=== PATIENT | male | born 1930 | race Caucasian/White ===

== ENCOUNTER 2018-09-05 11:51 | Observation (INO) | payer MEDICARE, OTHER ==
[2018-09-05 13:15] LABS: ADD MAN DIFF? NO
[2018-09-05 13:20] LABS: BASOPHILS % 0.2 % (0.0-2.0); EOSINOPHILS # 0.3 10^3/ul (0.0-0.5); EOSINOPHILS % 3.3 % (0.0-7.0); HEMATOCRIT 41.4 % (42.0-52.0); HEMOGLOBIN 14.1 g/dl (14.0-18.0); LYMPHOCYTES # 2.4 10^3/ul (0.8-2.9); LYMPHOCYTES % 26.7 % (15.0-51.0); MEAN CORPUSCULAR HEMOGLOBIN 30.8 pg (29.0-33.0); MEAN CORPUSCULAR HGB CONC 34.1 g/dl (32.0-37.0); MEAN CORPUSCULAR VOLUME 90.4 fl (82.0-101.0); MEAN PLATELET VOLUME 9.7 fl (7.4-10.4); MONOCYTES % 11.1 % (0.0-11.0); NEUTROPHIL # 5.1 10^3/ul (1.6-7.5); NEUTROPHILS % 58.2 % (39.0-77.0); PLATELET COUNT 198 10^3/UL (140-415); RED BLOOD COUNT 4.58 10^6/ul (4.70-6.10); RED CELL DISTRIBUTION WIDTH 13.1 % (11.5-14.5)
[2018-09-05 13:20] LABS: WHITE BLOOD COUNT 8.8 10^3/ul (4.8-10.8)
[2018-09-05 13:35] LABS: INR 2.42; PROTIME 26.4 Sec (11.9-14.9); PT RATIO 2.1
[2018-09-05 13:36] LABS: ANION GAP 9 (5-13); BLOOD UREA NITROGEN 19 mg/dl (7-20); CALCIUM 9.5 mg/dl (8.4-10.2); CARBON DIOXIDE 32 mmol/L (21-31); CHLORIDE 92 mmol/L (97-110); CREATININE 0.88 mg/dl (0.61-1.24); GLUCOSE 93 mg/dl (70-220); MAGNESIUM 1.8 mg/dl (1.7-2.5); SODIUM 133 mmol/L (135-144)
[2018-09-05 13:48] LABS: TROPONIN-I 0.025 ng/ml (0.000-0.120)
[2018-09-05] MEDS: HYDROCODONE/APAP (5/325) TAB PO (14:58)
[2018-09-05] MEDS: ONDANSETRON (ODT) 4 MG TAB ODT (14:58)
[2018-09-05] MEDS ORDERED: NACL 0.9% 3 ML SYG IV (18:30)
[2018-09-05] MEDS ORDERED: ONDANSETRON 4 MG INJ IV (18:30)
[2018-09-05] MEDS ORDERED: DOCUSATE SODIUM 100 MG CAP PO (18:30)
[2018-09-05] MEDS: MIRTAZAPINE 15 MG TAB PO (20:15)
[2018-09-05] MEDS: ACETAMINOPHEN 325 MG TAB PO (22:29)
[2018-09-06] MEDS: PANTOPRAZOLE (EC) 40 MG TAB PO (05:04)
[2018-09-06 07:29] LABS: ADD MAN DIFF? NO
[2018-09-06 07:34] LABS: WHITE BLOOD COUNT 8.8 10^3/ul (4.8-10.8)
[2018-09-06 07:34] LABS: BASOPHILS % 0.3 % (0.0-2.0); EOSINOPHILS # 0.3 10^3/ul (0.0-0.5); EOSINOPHILS % 3.4 % (0.0-7.0); HEMATOCRIT 40.6 % (42.0-52.0); HEMOGLOBIN 13.8 g/dl (14.0-18.0); LYMPHOCYTES % 34.5 % (15.0-51.0); MEAN CORPUSCULAR HEMOGLOBIN 30.7 pg (29.0-33.0); MEAN CORPUSCULAR VOLUME 90.4 fl (82.0-101.0); MONOCYTE # 0.9 10^3/ul (0.3-0.9); NEUTROPHIL # 4.5 10^3/ul (1.6-7.5); NEUTROPHILS % 51.5 % (39.0-77.0); PLATELET COUNT 193 10^3/UL (140-415); RED BLOOD COUNT 4.49 10^6/ul (4.70-6.10)
[2018-09-06 07:52] LABS: HEMOGLOBIN A1C 5.6 % (0-5.9)
[2018-09-06 08:05] LABS: ALANINE AMINOTRANSFERASE 17 IU/L (13-69); ALBUMIN 3.8 g/dl (3.3-4.9); ALBUMIN/GLOBULIN RATIO 1.52; ALKALINE PHOSPHATASE 45 IU/L (42-121); ANION GAP 7 (5-13); ASPARTATE AMINO TRANSFERASE 19 IU/L (15-46); BILIRUBIN,INDIRECT 1.2 mg/dl (0-1.1); BILIRUBIN,TOTAL 1.2 mg/dl (0.2-1.3); BLOOD UREA NITROGEN 18 mg/dl (7-20); CALCIUM 9.2 mg/dl (8.4-10.2); CARBON DIOXIDE 33 mmol/L (21-31); CHLORIDE 93 mmol/L (97-110); CHOL/HDL RATIO 2.7 RATIO; CHOLESTEROL 139 mg/dl (100-200); CREATININE 0.87 mg/dl (0.61-1.24); GLUCOSE 85 mg/dl (70-220); HDL CHOLESTEROL 51 mg/dl (31-75); LDL CHOLESTEROL,CALCULATED 72 mg/dl; POTASSIUM 3.7 mmol/L (3.5-5.1); SODIUM 133 mmol/L (135-144); TOTAL PROTEIN 6.3 g/dl (6.1-8.1); TRIGLYCERIDES 78 mg/dl (0-149)
[2018-09-06 08:09] LABS: B-TYPE NATRIURETIC PEPTIDE 890 PG/ML (0-450)
[2018-09-06 08:12] LABS: TROPONIN-I 0.031 ng/ml (0.000-0.120)
[2018-09-06] MEDS: BETA CAROTENE/VIT C/E/MIN TAB PO (09:21)
[2018-09-06] MEDS: ASPIRIN (EC) 81 MG TAB PO (09:22)
[2018-09-06] MEDS: METOLAZONE 5 MG TAB PO (09:22)
[2018-09-06] MEDS: POTASSIUM CHLORIDE (SR) 20 MEQ TAB PO (09:22)
[2018-09-06] MEDS: BENAZEPRIL 10 MG TAB PO (09:22)
[2018-09-06] MEDS: ASCORBIC ACID 500 MG TAB PO (09:22)
[2018-09-06] MEDS: FINASTERIDE 5 MG TAB PO (09:22)
[2018-09-06] MEDS: MULTIVITAMINS THERAPEUTIC TAB PO (09:22)
[2018-09-06] MEDS: FUROSEMIDE 40 MG TAB PO (09:23)
[2018-09-06] MEDS ORDERED: WARFARIN 2.5 MG TAB PO (17:00)
== END 2018-09-06 17:00 ==
LOC: E/R 11:51 → TEL 14:32
DX: M25.512 Pain in left shoulder (principal); I49.9 Cardiac arrhythmia, unspecified; N40.0 Benign prostatic hyperplasia without lower urinary tract symptoms; I50.9 Heart failure, unspecified; I48.91 Unspecified atrial fibrillation; I71.4 Abdominal aortic aneurysm, without rupture; Z79.01 Long term (current) use of anticoagulants; Z79.82 Long term (current) use of aspirin; Z95.0 Presence of cardiac pacemaker; Z95.1 Presence of aortocoronary bypass graft; F17.210 Nicotine dependence, cigarettes, uncomplicated; F01.50 Vascular dementia, unspecified severity, without behavioral disturbance, psychotic disturbance, mood disturbance, and anxiety; Z91.81 History of falling
CPT/HCPCS: 36415; 71045; 73030; 80048; 80053; 80061; 83036; 83735; 83880; 84443; 84484; 85025; 85610; 85730; 93005; 93306; 93880; 97162; 99285-25; G0378

== ENCOUNTER 2018-11-23 13:47 | Inpatient (IN) | payer MEDICARE, OTHER ==
[2018-11-23 14:19] LABS: ADD MAN DIFF? NO
[2018-11-23 14:40] LABS: BASOPHILS % 0.2 % (0.0-2.0); EOSINOPHILS # 0.1 10^3/ul (0.0-0.5); EOSINOPHILS % 0.9 % (0.0-7.0); HEMATOCRIT 39.7 % (42.0-52.0); HEMOGLOBIN 13.3 g/dl (14.0-18.0); LYMPHOCYTES # 2.7 10^3/ul (0.8-2.9); MEAN CORPUSCULAR HEMOGLOBIN 30.6 pg (29.0-33.0); MEAN CORPUSCULAR HGB CONC 33.5 g/dl (32.0-37.0); MEAN CORPUSCULAR VOLUME 91.3 fl (82.0-101.0); MEAN PLATELET VOLUME 9.6 fl (7.4-10.4); MONOCYTE # 1.2 10^3/ul (0.3-0.9); MONOCYTES % 12.3 % (0.0-11.0); NEUTROPHIL # 5.9 10^3/ul (1.6-7.5); NEUTROPHILS % 59.3 % (39.0-77.0); PLATELET COUNT 179 10^3/UL (140-415); RED BLOOD COUNT 4.35 10^6/ul (4.70-6.10); RED CELL DISTRIBUTION WIDTH 13.7 % (11.5-14.5)
[2018-11-23 14:44] LABS: INR 1.17; PT RATIO 1.2
[2018-11-23 14:45] LABS: PARTIAL THROMBOPLASTIN TIME 27.4 Sec (23.0-35.0)
[2018-11-23 14:46] LABS: ANION GAP 9 (5-13); BLOOD UREA NITROGEN 23 mg/dl (7-20); CALCIUM 9.2 mg/dl (8.4-10.2); CARBON DIOXIDE 31 mmol/L (21-31); CHLORIDE 93 mmol/L (97-110); CREATININE 0.89 mg/dl (0.61-1.24); GLUCOSE 99 mg/dl (70-220); POTASSIUM 3.9 mmol/L (3.5-5.1); SODIUM 133 mmol/L (135-144)
[2018-11-23] MEDS: CEFEPIME 1GM/50 ML (PMX) 50 ML IVPB (14:46)
[2018-11-23 14:58] LABS: TROPONIN-I 0.047 ng/ml (0.000-0.120)
[2018-11-23] MEDS ORDERED: ACETAMINOPHEN 325 MG TAB PO ×3 (15:00)
[2018-11-23] MEDS ORDERED: NACL 0.9% 3 ML SYG IV (15:00)
[2018-11-23] MEDS ORDERED: DOCUSATE SODIUM 100 MG CAP PO (15:00)
[2018-11-23] MEDS ORDERED: MAGNESIUM HYDROXIDE 30ML CUP PO (15:00)
[2018-11-23] MEDS ORDERED: ONDANSETRON 4 MG INJ IV ×2 (15:00)
[2018-11-23] MEDS ORDERED: morphine 2 MG INJ IV (15:00)
[2018-11-23] MEDS ORDERED: VANCOMYCIN IV PER PHARMACY XX (15:00)
[2018-11-23] MEDS: VANCOMYCIN 1 GM (PMX) 250 ML IVPB (15:46)
[2018-11-23] MEDS: FUROSEMIDE 40 MG INJ IV ×2 (15:47→20:32)
[2018-11-23] MEDS: METHYLPREDNISOLONE 40 MG INJ IV ×2 (15:47→20:32)
[2018-11-23] MEDS: ALBUTEROL/IPRATROPIUM (NEB) 3 ML AMP HHN ×2 (15:58→21:08)
[2018-11-23 16:15] LABS: B-TYPE NATRIURETIC PEPTIDE 1930 PG/ML (0-450)
[2018-11-23] MEDS: AZITHROMYCIN 500MG/NS (PMX) 250 ML IVPB (17:47)
[2018-11-23] MEDS: VANCOMYCIN 1 GM in 250 ML IVPB (20:31)
[2018-11-23] MEDS: GUAIFENESIN LA 600 MG TABSR PO (20:32)
[2018-11-23] MEDS: MIRTAZAPINE 15 MG TAB PO (20:32)
[2018-11-23] MEDS: HEPARIN 5,000 UNIT/1 ML VIAL SC (21:00)
[2018-11-23] MEDS: WARFARIN 3 MG TAB PO (21:35)
[2018-11-24] MEDS: GUAIFENESIN/DM 5ML CUP PO (00:56)
[2018-11-24] MEDS: CEFEPIME 1GM/50 ML (PMX) 50 ML IVPB ×3 (00:56→20:29)
[2018-11-24 05:21] LABS: ADD MAN DIFF? NO
[2018-11-24 05:27] LABS: BASOPHILS % 0.1 % (0.0-2.0); HEMATOCRIT 37.7 % (42.0-52.0); HEMOGLOBIN 13.1 g/dl (14.0-18.0); LYMPHOCYTES # 0.9 10^3/ul (0.8-2.9); LYMPHOCYTES % 12.4 % (15.0-51.0); MEAN CORPUSCULAR HGB CONC 34.7 g/dl (32.0-37.0); MEAN CORPUSCULAR VOLUME 89.1 fl (82.0-101.0); MEAN PLATELET VOLUME 9.8 fl (7.4-10.4); MONOCYTE # 0.2 10^3/ul (0.3-0.9); MONOCYTES % 2.7 % (0.0-11.0); NEUTROPHILS % 84.1 % (39.0-77.0); PLATELET COUNT 170 10^3/UL (140-415); RED BLOOD COUNT 4.23 10^6/ul (4.70-6.10); RED CELL DISTRIBUTION WIDTH 13.6 % (11.5-14.5)
[2018-11-24 05:27] LABS: WHITE BLOOD COUNT 7.1 10^3/ul (4.8-10.8)
[2018-11-24] MEDS: PANTOPRAZOLE (EC) 40 MG TAB PO (05:41)
[2018-11-24 05:49] LABS: INR 1.26; PROTIME 15.9 Sec (11.9-14.9); PT RATIO 1.2
[2018-11-24 06:03] LABS: ALANINE AMINOTRANSFERASE 33 IU/L (13-69); ALBUMIN 3.3 g/dl (3.3-4.9); ALBUMIN/GLOBULIN RATIO 1.26; ALKALINE PHOSPHATASE 45 IU/L (42-121); ANION GAP 9 (5-13); ASPARTATE AMINO TRANSFERASE 58 IU/L (15-46); BILIRUBIN,INDIRECT 1.1 mg/dl (0-1.1); BILIRUBIN,TOTAL 1.1 mg/dl (0.2-1.3); BLOOD UREA NITROGEN 22 mg/dl (7-20); CALCIUM 8.9 mg/dl (8.4-10.2); CARBON DIOXIDE 31 mmol/L (21-31); CHLORIDE 96 mmol/L (97-110); CHOL/HDL RATIO 2.8 RATIO; CHOLESTEROL 122 mg/dl (100-200); CREATININE 0.75 mg/dl (0.61-1.24); GLUCOSE 154 mg/dl (70-220); HDL CHOLESTEROL 43 mg/dl (31-75); LDL CHOLESTEROL,CALCULATED 70 mg/dl; POTASSIUM 3.4 mmol/L (3.5-5.1); SODIUM 136 mmol/L (135-144); TOTAL PROTEIN 5.9 g/dl (6.1-8.1); TRIGLYCERIDES 43 mg/dl (0-149)
[2018-11-24 06:25] LABS: THYROID STIMULATING HORMONE 0.798 MIU/L (0.465-4.680)
[2018-11-24 06:41] LABS: HEMOGLOBIN A1C 5.3 % (0-5.9)
[2018-11-24] MEDS: ASCORBIC ACID 500 MG TAB PO (08:16)
[2018-11-24] MEDS: MULTIVITAMINS THERAPEUTIC TAB PO (08:16)
[2018-11-24] MEDS: GUAIFENESIN LA 600 MG TABSR PO ×2 (08:16→20:28)
[2018-11-24] MEDS: POTASSIUM CHLORIDE (SR) 20 MEQ TAB PO (08:16)
[2018-11-24] MEDS: BETA CAROTENE/VIT C/E/MIN TAB PO (08:17)
[2018-11-24] MEDS: FINASTERIDE 5 MG TAB PO (08:17)
[2018-11-24] MEDS: FUROSEMIDE 40 MG INJ IV ×2 (08:19→20:39)
[2018-11-24] MEDS: BENAZEPRIL 10 MG TAB PO (08:19)
[2018-11-24] MEDS: METHYLPREDNISOLONE 40 MG INJ IV ×2 (08:19→20:28)
[2018-11-24] MEDS: HEPARIN 5,000 UNIT/1 ML VIAL SC ×2 (08:37→20:29)
[2018-11-24] MEDS: ALBUTEROL/IPRATROPIUM (NEB) 3 ML AMP HHN ×3 (08:40→20:00)
[2018-11-24 11:19] LABS: PROCALCITONIN 0.08 ng/mL (0.00-0.10)
[2018-11-24] MEDS: WARFARIN 5 MG TAB PO (17:35)
[2018-11-24] MEDS: MIRTAZAPINE 15 MG TAB PO (20:28)
[2018-11-24] MEDS: VANCOMYCIN HCL 1.5 GM in SOD CHLORIDE 0.9% 250 ML IVPB (21:10)
[2018-11-25 06:15] LABS: ADD MAN DIFF? NO
[2018-11-25 06:17] LABS: WHITE BLOOD COUNT 15.3 10^3/ul (4.8-10.8)
[2018-11-25 06:17] LABS: BASOPHILS % 0.1 % (0.0-2.0); HEMATOCRIT 35.8 % (42.0-52.0); HEMOGLOBIN 12.3 g/dl (14.0-18.0); LYMPHOCYTES # 1.2 10^3/ul (0.8-2.9); LYMPHOCYTES % 8.1 % (15.0-51.0); MEAN CORPUSCULAR HEMOGLOBIN 30.7 pg (29.0-33.0); MEAN CORPUSCULAR HGB CONC 34.4 g/dl (32.0-37.0); MEAN CORPUSCULAR VOLUME 89.3 fl (82.0-101.0); MEAN PLATELET VOLUME 9.7 fl (7.4-10.4); MONOCYTE # 0.5 10^3/ul (0.3-0.9); MONOCYTES % 3.4 % (0.0-11.0); NEUTROPHIL # 13.4 10^3/ul (1.6-7.5); NEUTROPHILS % 87.6 % (39.0-77.0); PLATELET COUNT 172 10^3/UL (140-415); RED BLOOD COUNT 4.01 10^6/ul (4.70-6.10); RED CELL DISTRIBUTION WIDTH 13.5 % (11.5-14.5)
[2018-11-25] MEDS: PANTOPRAZOLE (EC) 40 MG TAB PO (06:24)
[2018-11-25 06:45] LABS: PROTIME 16.3 Sec (11.9-14.9); PT RATIO 1.3
[2018-11-25 06:56] LABS: PHOSPHORUS 3.9 mg/dl (2.5-4.9)
[2018-11-25 06:58] LABS: B-TYPE NATRIURETIC PEPTIDE 2580 PG/ML (0-450)
[2018-11-25 07:01] LABS: ALANINE AMINOTRANSFERASE 35 IU/L (13-69); ALBUMIN 3.3 g/dl (3.3-4.9); ALBUMIN/GLOBULIN RATIO 1.32; ALKALINE PHOSPHATASE 45 IU/L (42-121); ANION GAP 9 (5-13); ASPARTATE AMINO TRANSFERASE 56 IU/L (15-46); BILIRUBIN,INDIRECT 0.8 mg/dl (0-1.1); BILIRUBIN,TOTAL 0.8 mg/dl (0.2-1.3); BLOOD UREA NITROGEN 31 mg/dl (7-20); CALCIUM 8.8 mg/dl (8.4-10.2); CARBON DIOXIDE 30 mmol/L (21-31); CHLORIDE 95 mmol/L (97-110); CHOLESTEROL 128 mg/dl (100-200); CREATININE 0.89 mg/dl (0.61-1.24); GLUCOSE 134 mg/dl (70-220); HDL CHOLESTEROL 42 mg/dl (31-75); LDL CHOLESTEROL,CALCULATED 73 mg/dl; SODIUM 134 mmol/L (135-144); TOTAL PROTEIN 5.8 g/dl (6.1-8.1); TRIGLYCERIDES 65 mg/dl (0-149)
[2018-11-25 07:19] LABS: FREE T4 (FREE THYROXINE) 1.33 ng/dl (0.85-1.93)
[2018-11-25 07:19] LABS: THYROID STIMULATING HORMONE 0.553 MIU/L (0.465-4.680)
[2018-11-25] MEDS: ALBUTEROL/IPRATROPIUM (NEB) 3 ML AMP HHN ×3 (08:34→20:35)
[2018-11-25] MEDS: MULTIVITAMINS THERAPEUTIC TAB PO (09:47)
[2018-11-25] MEDS: METHYLPREDNISOLONE 40 MG INJ IV ×2 (09:47→20:58)
[2018-11-25] MEDS: POTASSIUM CHLORIDE (SR) 20 MEQ TAB PO (09:47)
[2018-11-25] MEDS: ASCORBIC ACID 500 MG TAB PO (09:47)
[2018-11-25] MEDS: BETA CAROTENE/VIT C/E/MIN TAB PO (09:47)
[2018-11-25] MEDS: FINASTERIDE 5 MG TAB PO (09:47)
[2018-11-25] MEDS: GUAIFENESIN LA 600 MG TABSR PO ×2 (09:47→20:59)
[2018-11-25] MEDS: FUROSEMIDE 40 MG INJ IV (09:48)
[2018-11-25] MEDS: BENAZEPRIL 10 MG TAB PO (09:48)
[2018-11-25] MEDS: HEPARIN 5,000 UNIT/1 ML VIAL SC ×2 (09:48→21:01)
[2018-11-25] MEDS: CEFEPIME 1GM/50 ML (PMX) 50 ML IVPB ×2 (10:03→20:57)
[2018-11-25] MEDS: WARFARIN 5 MG TAB PO (16:43)
[2018-11-25] MEDS: MIRTAZAPINE 15 MG TAB PO (20:59)
[2018-11-26] MEDS: PANTOPRAZOLE (EC) 40 MG TAB PO (05:50)
[2018-11-26] MEDS: FUROSEMIDE 40 MG TAB PO (05:52)
[2018-11-26 06:16] LABS: INR 1.74; PROTIME 20.4 Sec (11.9-14.9); PT RATIO 1.6
[2018-11-26 06:17] LABS: PARTIAL THROMBOPLASTIN TIME 29.2 Sec (23.0-35.0)
[2018-11-26] MEDS: ALBUTEROL/IPRATROPIUM (NEB) 3 ML AMP HHN ×2 (09:00→13:54)
[2018-11-26] MEDS: BENAZEPRIL 10 MG TAB PO (09:14)
[2018-11-26] MEDS: BETA CAROTENE/VIT C/E/MIN TAB PO (09:15)
[2018-11-26] MEDS: ASCORBIC ACID 500 MG TAB PO (09:15)
[2018-11-26] MEDS: FINASTERIDE 5 MG TAB PO (09:15)
[2018-11-26] MEDS: METHYLPREDNISOLONE 40 MG INJ IV (09:15)
[2018-11-26] MEDS: MULTIVITAMINS THERAPEUTIC TAB PO (09:15)
[2018-11-26] MEDS: POTASSIUM CHLORIDE (SR) 20 MEQ TAB PO (09:15)
[2018-11-26] MEDS: GUAIFENESIN LA 600 MG TABSR PO (09:15)
[2018-11-26] MEDS: HEPARIN 5,000 UNIT/1 ML VIAL SC (09:17)
[2018-11-26] MEDS: CEFEPIME 1GM/50 ML (PMX) 50 ML IVPB (09:23)
[2018-11-26] MEDS ORDERED: CEFEPIME 1GM/50 ML (PMX) 50 ML (09:23)
== END 2018-11-26 16:20 | disposition home health service (06) | DRG 291 ==
LOC: E/R 13:47 → PP2 14:34
DX: I11.0 Hypertensive heart disease with heart failure (principal); J18.9 Pneumonia, unspecified organism; J96.00 Acute respiratory failure, unspecified whether with hypoxia or hypercapnia; J20.9 Acute bronchitis, unspecified; I50.33 Acute on chronic diastolic (congestive) heart failure; E78.5 Hyperlipidemia, unspecified; I25.10 Atherosclerotic heart disease of native coronary artery without angina pectoris; I48.91 Unspecified atrial fibrillation; I73.9 Peripheral vascular disease, unspecified; N40.0 Benign prostatic hyperplasia without lower urinary tract symptoms; M75.92 Shoulder lesion, unspecified, left shoulder; M54.2 Cervicalgia; M19.012 Primary osteoarthritis, left shoulder; F01.50 Vascular dementia, unspecified severity, without behavioral disturbance, psychotic disturbance, mood disturbance, and anxiety; Z87.891 Personal history of nicotine dependence; Z95.2 Presence of prosthetic heart valve; Z95.1 Presence of aortocoronary bypass graft; Z95.0 Presence of cardiac pacemaker; Z79.01 Long term (current) use of anticoagulants
CPT/HCPCS: 36415; 71045; 71250; 72040; 73030; 80048; 80053; 80061; 83036; 83605; 83735; 83880; 84100; 84145; 84439; 84443; 84484; 85025; 85610; 85730; 87040-91; 93970; 94640; 94664; 97162; 99285-25